=== PATIENT | female | born 1985 | race American Indian/Alaskan Native ===

== ENCOUNTER 2018-08-02 14:56 | Emergency (ER) | payer BC, OTHER ==
[~2018-08-02] VITALS: Ht 165.1 cm; Wt 96.6 kg
--- OUTSIDE RECORDS SUMMARY | ~2018-08-02 | XMS | Clinical Summary ---
Demographics + + + | Address | [address] | | | [place] [address] | + + + | Home Phone | | + + + | Preferred Language | Unknown | + + + | Marital Status | Single | + + + | Episcopal Affiliation | 1041 | + + + | Race | Unknown | + + + | Ethnic Group | Unknown | + + + Author + + + | Author | [facility] | + + + | Organization | [facility] | + + + | Address | Unknown | + + + | Phone | Unavailable | + + + Support + + +---------+ + | Name | Relationship | Address | Phone | + + +---------+ + | Malissa Jaeger | ECON | Unknown | | + + +---------+ + Care Team Providers + +------+ + | Care Value Advisor Name | Role | Phone | + +------+ + PP | Unavailable | + +------+ + Allergies Not on File Current Medications Not on file Active Problems Not on file Social History + +-------+ +--------+------+ | Tobacco Use | Types | Packs/Day | Years | Date | | | | | Used | | + +-------+ +--------+------+ | Never Assessed | | | | | + +-------+ +--------+------+ + + + | Sex Assigned at | Date Recorded | | | | + + + | Not on file | | + + + Last Filed Vital Signs + + + + | Vital Sign | Reading | Time Taken | + + + + | Blood Pressure | 118/80 | 05/10/2004 4:35 PM PDT | + + + + | Pulse | - | - | + + + + | Temperature | - | - | + + + + | Respiratory Rate | - | - | + + + + | Oxygen Saturation | - | - | + + + + | Inhaled Oxygen | - | - | | Concentration | | | + + + + | Weight | 109.3 kg (241 lb) | 05/10/2004 4:35 PM PDT | + + + + | Height | 167.6 cm (5' 6") | 05/10/2004 4:35 PM PDT | + + + + | Body Mass Index | 38.9 | 05/10/2004 4:35 PM PDT | + + + + Plan of Treatment Not on file Results Not on filefrom Last 3 Months
--- OUTSIDE RECORDS SUMMARY | ~2018-08-02 | XMS | Clinical Summary ---
Demographics + + + | Address | [address] | | | [place] [address] | + + + | Home Phone | | + + + | Preferred Language | Unknown | + + + | Marital Status | Single | + + + | Jew Affiliation | 1041 | + + + | Race | Unknown | + + + | Ethnic Group | Unknown | + + + Author + + + | Author | [facility] | + + + | Organization | [facility] | + + + | Address | Unknown | + + + | Phone | Unavailable | + + + Support + + +---------+ + | Name | Relationship | Address | Phone | + + +---------+ + | Malissa Jaeger | ECON | Unknown | | + + +---------+ + Care Team Providers + +------+ + | Care Road Commissioner Name | Role | Phone | + [...]
== END 2018-08-02 16:00 | disposition home or self-care (01) ==
LOC: ED 14:56
DX: T59.811A Toxic effect of smoke, accidental (unintentional), initial encounter (principal); J68.9 Unspecified respiratory condition due to chemicals, gases, fumes and vapors; Z88.2 Allergy status to sulfonamides; Z88.1 Allergy status to other antibiotic agents
CPT/HCPCS: 99283

== ENCOUNTER 2025-07-03 16:47 | Emergency (ER) | payer OTHER ==
[~2025-07-03] VITALS: Ht 165.1 cm; Wt 98.0 kg
[2025-07-03] MEDS ORDERED: CYCLOBENZAPRINE10 MG PO (20:26)
[2025-07-03] MEDS ORDERED: CYCLOBENZAPRINE HCL 10 MG HOME.PACK PO ONE (20:30)
[2025-07-03 20:42] VITALS: BP 125/87
--- NOTE | 2025-07-04 10:43 | EKG ---
[facility] [address] [facility] [place], [place] [address] Signed Normal sinus rhythm Normal ECG No previous ECGs available Confirmed by TAMIKA BECKHAM MD ([id number]) on 07/04/2025 10:43:38 AM Electronically Signed By: TAMIKA BECKHAM 07/04/25 1043 PATIENT NAME: BALJINDER HERRERA Electrocardiogram DATE OF : 81 PHYSICIAN: TAMIKA BECKHAM REPORT #: [id number] REPORT IS CONFIDENTIAL AND NOT TO BE RELEASED WITHOUT AUTHORIZATION
== END 2025-07-03 20:42 | disposition home or self-care (01) ==
LOC: ED 16:47
DX: U07.1 COVID-19 (principal); M94.0 Chondrocostal junction syndrome [Tietze]; Z88.8 Allergy status to other drugs, medicaments and biological substances
CPT/HCPCS: 36415; 71045; 85379; 93005; 93010; 99285-25